=== PATIENT | female | born 1935 | race Caucasian/White ===

== ENCOUNTER 2022-03-13 10:16 | Inpatient (IN) ==
[2022-03-14] MEDS: Vancomycin Oral Soln 125 MG/2.5 ML UDC PO SCH ×5 (00:34→22:24)
[2022-03-14] MEDS: metroNIDAZOLE 500 MG TABLET PO SCH ×4 (00:34→22:26)
[2022-03-14] MEDS: *HR* HYDROcodone/Acet 5/325 mg TABLET PO PRN ×3 (00:44→22:24)
[2022-03-14] MEDS: amLODIPine 5 MG TABLET PO SCH ×2 (00:44→22:23)
[2022-03-14 07:59] LABS: Basophils # 0.1 K/mcL (0.0-0.2); Basophils % 0.8 %; Eosinophils # 0.2 K/mcL (0.0-0.6); Eosinophils % 1.5 %; Hematocrit 35.9 % (35.3-44.9); Hemoglobin 11.8 g/dL (11.5-15.4); Immature Granulocytes % 3.9 % (0-4); Lymphocytes # 1.2 K/mcL (0.6-4.6); Lymphocytes % 11.1 %; Mean Corpuscular HGB Conc 32.9 g/dL (31.6-35.5); Mean Corpuscular Hemoglobin 26.4 pg (28.0-33.3); Mean Corpuscular Volume 80.3 fL (83.0-100.0); Mean Platelet Volume 8.3 fL (9.4-12.4); Monocytes # 1.1 K/mcL (0.0-1.3); Neutrophils # 7.9 K/mcL (1.6-8.9); Platelet Count 442 K/mcL (140-400); Red Blood Count 4.47 M/mcL (3.82-4.97); Red Cell Distribution Width 15.5 % (11.5-14.5); Segmented Neutrophils % 72.7 %; White Blood Count 10.8 K/mcL (4.3-11.1)
[2022-03-14 08:18] LABS: BUN/Creatinine Ratio 14 (6-26); Blood Urea Nitrogen 5 mg/dL (8-23); Calcium 8.1 mg/dL (8.6-10.3); Carbon Dioxide 32 mEq/L (23-29); Chloride 94 mEq/L (98-107); Glucose 124 mg/dL (70-105); Osmolality,Calculated 269 (280-300); Potassium 3.6 mEq/L (3.5-5.1); Sodium 130 mEq/L (136-145); eGFR For African Americans > 60 (> 60); eGFR For Non-African Americans > 60 (> 60)
[2022-03-14] MEDS: Tiotropium 10 INH DOSE IH SCH (09:00)
[2022-03-14] MEDS: carvediloL 6.25 MG TABLET PO SCH ×2 (11:06→17:45)
[2022-03-14] MEDS: Famotidine 20 MG TABLET PO SCH (11:07)
[2022-03-14] MEDS: Aspirin Enteric Coated 81 MG Tablet PO SCH (11:07)
[2022-03-14] MEDS: Lactobacillus 1 EACH CAP.SPRINK PO SCH (11:07)
[2022-03-15 08:17] LABS: Basophils # 0.1 K/mcL (0.0-0.2); Basophils % 0.7 %; Eosinophils # 0.1 K/mcL (0.0-0.6); Eosinophils % 1.2 %; Hematocrit 34.9 % (35.3-44.9); Hemoglobin 11.4 g/dL (11.5-15.4); Immature Granulocytes % 2.7 % (0-4); Lymphocytes # 1.3 K/mcL (0.6-4.6); Lymphocytes % 12.3 %; Mean Corpuscular HGB Conc 32.7 g/dL (31.6-35.5); Mean Corpuscular Hemoglobin 26.8 pg (28.0-33.3); Mean Corpuscular Volume 81.9 fL (83.0-100.0); Mean Platelet Volume 8.1 fL (9.4-12.4); Neutrophils # 7.6 K/mcL (1.6-8.9); Platelet Count 422 K/mcL (140-400); Red Blood Count 4.26 M/mcL (3.82-4.97); Red Cell Distribution Width 15.6 % (11.5-14.5); Segmented Neutrophils % 73.1 %; White Blood Count 10.4 K/mcL (4.3-11.1)
[2022-03-15 08:47] LABS: BUN/Creatinine Ratio 16 (6-26); Blood Urea Nitrogen 6 mg/dL (8-23); Carbon Dioxide 30 mEq/L (23-29); Chloride 96 mEq/L (98-107); Glucose 120 mg/dL (70-105); Magnesium 1.6 mg/dL (1.6-2.6); Osmolality,Calculated 273 (280-300); Potassium 3.6 mEq/L (3.5-5.1); Sodium 132 mEq/L (136-145); eGFR For African Americans > 60 (> 60); eGFR For Non-African Americans > 60 (> 60)
[2022-03-15] MEDS: Vancomycin Oral Soln 125 MG/2.5 ML UDC PO SCH ×4 (10:14→21:22)
[2022-03-15] MEDS: carvediloL 6.25 MG TABLET PO SCH ×2 (10:14→16:04)
[2022-03-15] MEDS: Lactobacillus 1 EACH CAP.SPRINK PO SCH (10:14)
[2022-03-15] MEDS: metroNIDAZOLE 500 MG TABLET PO SCH ×3 (10:14→21:22)
[2022-03-15] MEDS: Aspirin Enteric Coated 81 MG Tablet PO SCH (10:15)
[2022-03-15] MEDS: Famotidine 20 MG TABLET PO SCH (10:15)
[2022-03-15] MEDS: Tiotropium 10 INH DOSE IH SCH (11:19)
[2022-03-15] MEDS: *HR* HYDROcodone/Acet 5/325 mg TABLET PO PRN (12:27)
[2022-03-15] MEDS: amLODIPine 5 MG TABLET PO SCH (21:22)
[2022-03-16] MEDS: Tiotropium 10 INH DOSE IH SCH (08:22)
[2022-03-16] MEDS: Vancomycin Oral Soln 125 MG/2.5 ML UDC PO SCH ×4 (09:47→21:15)
[2022-03-16] MEDS: carvediloL 6.25 MG TABLET PO SCH ×2 (09:47→17:18)
[2022-03-16] MEDS: Lactobacillus 1 EACH CAP.SPRINK PO SCH (09:47)
[2022-03-16] MEDS: Aspirin Enteric Coated 81 MG Tablet PO SCH (09:47)
[2022-03-16] MEDS: Famotidine 20 MG TABLET PO SCH (09:47)
[2022-03-16] MEDS: *HR* HYDROcodone/Acet 5/325 mg TABLET PO PRN ×2 (14:40→21:14)
[2022-03-16] MEDS: amLODIPine 5 MG TABLET PO SCH (21:14)
[2022-03-17] MEDS: *HR* Enoxaparin 40 MG/0.4 ML SYRINGE SQ SCH (05:22)
[2022-03-17] MEDS: Tiotropium 10 INH DOSE IH SCH (09:56)
[2022-03-17] MEDS: Aspirin Enteric Coated 81 MG Tablet PO SCH (10:14)
[2022-03-17] MEDS: Famotidine 20 MG TABLET PO SCH (10:14)
[2022-03-17] MEDS: Lactobacillus 1 EACH CAP.SPRINK PO SCH (10:14)
[2022-03-17] MEDS: carvediloL 6.25 MG TABLET PO SCH ×2 (10:14→18:05)
[2022-03-17] MEDS: *HR* HYDROcodone/Acet 5/325 mg TABLET PO PRN (18:05)
[2022-03-17] MEDS: Acetaminophen 325 MG TABLET PO PRN (21:18)
[2022-03-17] MEDS: amLODIPine 5 MG TABLET PO SCH (21:19)
[2022-03-18] MEDS: *HR* Enoxaparin 40 MG/0.4 ML SYRINGE SQ SCH (06:43)
[2022-03-18] MEDS: carvediloL 6.25 MG TABLET PO SCH ×2 (08:33→16:56)
[2022-03-18] MEDS: Lactobacillus 1 EACH CAP.SPRINK PO SCH (08:33)
[2022-03-18] MEDS: Aspirin Enteric Coated 81 MG Tablet PO SCH (08:33)
[2022-03-18] MEDS: Famotidine 20 MG TABLET PO SCH (08:36)
[2022-03-18] MEDS: Tiotropium 10 INH DOSE IH SCH (09:13)
[2022-03-18] MEDS: *HR* HYDROcodone/Acet 5/325 mg TABLET PO PRN (16:56)
[2022-03-18] MEDS: amLODIPine 5 MG TABLET PO SCH (21:39)
[2022-03-19] MEDS: *HR* HYDROcodone/Acet 5/325 mg TABLET PO PRN ×4 (01:08→23:50)
[2022-03-19] MEDS: *HR* Enoxaparin 40 MG/0.4 ML SYRINGE SQ SCH (06:45)
[2022-03-19 07:25] LABS: Basophils # 0.1 K/mcL (0.0-0.2); Basophils % 1.3 %; Eosinophils # 0.2 K/mcL (0.0-0.6); Eosinophils % 2.7 %; Hematocrit 34.8 % (35.3-44.9); Immature Granulocytes % 0.7 % (0-4); Lymphocytes # 1.4 K/mcL (0.6-4.6); Lymphocytes % 23.2 %; Mean Corpuscular HGB Conc 31.6 g/dL (31.6-35.5); Mean Corpuscular Hemoglobin 26.3 pg (28.0-33.3); Mean Corpuscular Volume 83.1 fL (83.0-100.0); Mean Platelet Volume 8.2 fL (9.4-12.4); Monocytes # 0.7 K/mcL (0.0-1.3); Monocytes % 11.1 %; Neutrophils # 3.6 K/mcL (1.6-8.9); Platelet Count 551 K/mcL (140-400); Red Blood Count 4.19 M/mcL (3.82-4.97); Red Cell Distribution Width 15.9 % (11.5-14.5)
[2022-03-19] MEDS: carvediloL 6.25 MG TABLET PO SCH ×2 (07:38→15:42)
[2022-03-19] MEDS: Aspirin Enteric Coated 81 MG Tablet PO SCH (07:38)
[2022-03-19] MEDS: Famotidine 20 MG TABLET PO SCH (07:38)
[2022-03-19] MEDS: Lactobacillus 1 EACH CAP.SPRINK PO SCH (07:38)
[2022-03-19 07:59] LABS: BUN/Creatinine Ratio 27 (6-26); Blood Urea Nitrogen 12 mg/dL (8-23); Calcium 8.7 mg/dL (8.6-10.3); Carbon Dioxide 31 mEq/L (23-29); Chloride 98 mEq/L (98-107); Glucose 106 mg/dL (70-105); Osmolality,Calculated 280 (280-300); Potassium 3.7 mEq/L (3.5-5.1); Sodium 135 mEq/L (136-145); eGFR For African Americans > 60 (> 60); eGFR For Non-African Americans > 60 (> 60)
[2022-03-19] MEDS: Tiotropium 10 INH DOSE IH SCH (09:18)
[2022-03-19] MEDS: amLODIPine 5 MG TABLET PO SCH (23:47)
[2022-03-20] MEDS: *HR* Enoxaparin 40 MG/0.4 ML SYRINGE SQ SCH (06:22)
[2022-03-20] MEDS: *HR* HYDROcodone/Acet 5/325 mg TABLET PO PRN ×3 (08:08→20:35)
[2022-03-20] MEDS: Famotidine 20 MG TABLET PO SCH (08:42)
[2022-03-20] MEDS: Lactobacillus 1 EACH CAP.SPRINK PO SCH (08:42)
[2022-03-20] MEDS: Aspirin Enteric Coated 81 MG Tablet PO SCH (08:42)
[2022-03-20] MEDS: carvediloL 6.25 MG TABLET PO SCH ×2 (08:42→18:18)
[2022-03-20] MEDS: Tiotropium 10 INH DOSE IH SCH (09:18)
[2022-03-20] MEDS: FLUOCINONIDE 0.05% TP SCH ×2 (20:34→23:18)
[2022-03-20] MEDS: amLODIPine 5 MG TABLET PO SCH (20:35)
[2022-03-21] MEDS: *HR* HYDROcodone/Acet 5/325 mg TABLET PO PRN ×3 (06:21→21:36)
[2022-03-21] MEDS: *HR* Enoxaparin 40 MG/0.4 ML SYRINGE SQ SCH (06:21)
[2022-03-21] MEDS: carvediloL 6.25 MG TABLET PO SCH ×2 (08:37→16:46)
[2022-03-21] MEDS: Lactobacillus 1 EACH CAP.SPRINK PO SCH (08:37)
[2022-03-21] MEDS: Famotidine 20 MG TABLET PO SCH (08:37)
[2022-03-21] MEDS: Aspirin Enteric Coated 81 MG Tablet PO SCH (08:37)
[2022-03-21] MEDS: FLUOCINONIDE 0.05% TP SCH ×2 (08:39→21:37)
[2022-03-21] MEDS: Tiotropium 10 INH DOSE IH SCH (09:19)
[2022-03-21] MEDS: amLODIPine 5 MG TABLET PO SCH (21:36)
[2022-03-22] MEDS: *HR* HYDROcodone/Acet 5/325 mg TABLET PO PRN ×2 (05:19→20:56)
[2022-03-22] MEDS: *HR* Enoxaparin 40 MG/0.4 ML SYRINGE SQ SCH (05:19)
[2022-03-22] MEDS: carvediloL 6.25 MG TABLET PO SCH ×2 (08:31→16:29)
[2022-03-22] MEDS: Famotidine 20 MG TABLET PO SCH (08:31)
[2022-03-22] MEDS: Lactobacillus 1 EACH CAP.SPRINK PO SCH (08:31)
[2022-03-22] MEDS: Aspirin Enteric Coated 81 MG Tablet PO SCH (08:32)
[2022-03-22] MEDS: FLUOCINONIDE 0.05% TP SCH ×3 (08:33→21:01)
[2022-03-22] MEDS: Tiotropium 10 INH DOSE IH SCH (08:56)
[2022-03-22] MEDS: amLODIPine 5 MG TABLET PO SCH (20:56)
[2022-03-23] MEDS: *HR* HYDROcodone/Acet 5/325 mg TABLET PO PRN ×3 (04:20→22:47)
[2022-03-23] MEDS: *HR* Enoxaparin 40 MG/0.4 ML SYRINGE SQ SCH (04:22)
[2022-03-23] MEDS: Famotidine 20 MG TABLET PO SCH (08:07)
[2022-03-23] MEDS: Aspirin Enteric Coated 81 MG Tablet PO SCH (08:07)
[2022-03-23] MEDS: carvediloL 6.25 MG TABLET PO SCH ×2 (08:07→18:13)
[2022-03-23] MEDS: FLUOCINONIDE 0.05% TP SCH ×2 (08:08→22:48)
[2022-03-23] MEDS: Lactobacillus 1 EACH CAP.SPRINK PO SCH (08:08)
[2022-03-23] MEDS: Tiotropium 10 INH DOSE IH SCH (08:37)
[2022-03-23] MEDS: Acetaminophen 325 MG TABLET PO PRN (18:12)
[2022-03-23] MEDS: amLODIPine 5 MG TABLET PO SCH (22:47)
[2022-03-24] MEDS: *HR* Enoxaparin 40 MG/0.4 ML SYRINGE SQ SCH (06:11)
[2022-03-24] MEDS: *HR* HYDROcodone/Acet 5/325 mg TABLET PO PRN ×2 (08:00→18:20)
[2022-03-24] MEDS: Famotidine 20 MG TABLET PO SCH (08:01)
[2022-03-24] MEDS: Lactobacillus 1 EACH CAP.SPRINK PO SCH (08:01)
[2022-03-24] MEDS: FLUOCINONIDE 0.05% TP SCH ×2 (08:01→20:25)
[2022-03-24] MEDS: Aspirin Enteric Coated 81 MG Tablet PO SCH (08:01)
[2022-03-24] MEDS: carvediloL 6.25 MG TABLET PO SCH ×2 (08:01→18:17)
[2022-03-24] MEDS: Tiotropium 10 INH DOSE IH SCH (09:26)
[2022-03-24] MEDS: amLODIPine 5 MG TABLET PO SCH (20:25)
[2022-03-25] MEDS: *HR* HYDROcodone/Acet 5/325 mg TABLET PO PRN ×3 (00:45→20:56)
[2022-03-25] MEDS: *HR* Enoxaparin 40 MG/0.4 ML SYRINGE SQ SCH (05:31)
[2022-03-25] MEDS: Acetaminophen 325 MG TABLET PO PRN (05:31)
[2022-03-25] MEDS: Tiotropium 10 INH DOSE IH SCH (08:08)
[2022-03-25] MEDS: Famotidine 20 MG TABLET PO SCH (08:39)
[2022-03-25] MEDS: Lactobacillus 1 EACH CAP.SPRINK PO SCH (08:39)
[2022-03-25] MEDS: Aspirin Enteric Coated 81 MG Tablet PO SCH (08:39)
[2022-03-25] MEDS: carvediloL 6.25 MG TABLET PO SCH ×2 (08:39→17:20)
[2022-03-25] MEDS: FLUOCINONIDE 0.05% TP SCH ×2 (08:40→20:57)
[2022-03-25] MEDS: amLODIPine 5 MG TABLET PO SCH (20:56)
[2022-03-26] MEDS: *HR* HYDROcodone/Acet 5/325 mg TABLET PO PRN (04:33)
[2022-03-26] MEDS: *HR* Enoxaparin 40 MG/0.4 ML SYRINGE SQ SCH (06:20)
[2022-03-26 07:44] LABS: Hematocrit 33.7 % (35.3-44.9); Hemoglobin 10.8 g/dL (11.5-15.4); Mean Corpuscular Hemoglobin 26.5 pg (28.0-33.3); Mean Corpuscular Volume 82.6 fL (83.0-100.0); Mean Platelet Volume 8.2 fL (9.4-12.4); Platelet Count 407 K/mcL (140-400); Red Blood Count 4.08 M/mcL (3.82-4.97); Red Cell Distribution Width 15.9 % (11.5-14.5); White Blood Count 6.7 K/mcL (4.3-11.1)
[2022-03-26 08:09] LABS: BUN/Creatinine Ratio 27 (6-26); Blood Urea Nitrogen 12 mg/dL (8-23); Calcium 9.1 mg/dL (8.6-10.3); Carbon Dioxide 31 mEq/L (23-29); Chloride 99 mEq/L (98-107); Glucose 115 mg/dL (70-105); Osmolality,Calculated 285 (280-300); Potassium 3.7 mEq/L (3.5-5.1); Sodium 137 mEq/L (136-145); eGFR For African Americans > 60 (> 60); eGFR For Non-African Americans > 60 (> 60)
[2022-03-26] MEDS: Tiotropium 10 INH DOSE IH SCH (08:55)
[2022-03-26] MEDS: Lactobacillus 1 EACH CAP.SPRINK PO SCH (09:11)
[2022-03-26] MEDS: Aspirin Enteric Coated 81 MG Tablet PO SCH (09:11)
[2022-03-26] MEDS: Famotidine 20 MG TABLET PO SCH (09:12)
[2022-03-26] MEDS: carvediloL 6.25 MG TABLET PO SCH ×2 (09:12→16:56)
[2022-03-26] MEDS: FLUOCINONIDE 0.05% TP SCH ×2 (09:13→21:02)
[2022-03-26] MEDS: amLODIPine 5 MG TABLET PO SCH (21:03)
[2022-03-27] MEDS: *HR* HYDROcodone/Acet 5/325 mg TABLET PO PRN ×3 (01:47→19:46)
[2022-03-27] MEDS: *HR* Enoxaparin 40 MG/0.4 ML SYRINGE SQ SCH (06:15)
[2022-03-27] MEDS: carvediloL 6.25 MG TABLET PO SCH ×2 (08:28→17:22)
[2022-03-27] MEDS: Famotidine 20 MG TABLET PO SCH (08:28)
[2022-03-27] MEDS: Aspirin Enteric Coated 81 MG Tablet PO SCH (08:28)
[2022-03-27] MEDS: Lactobacillus 1 EACH CAP.SPRINK PO SCH (08:28)
[2022-03-27] MEDS: FLUOCINONIDE 0.05% TP SCH ×2 (08:29→19:46)
[2022-03-27] MEDS: Tiotropium 10 INH DOSE IH SCH (10:07)
[2022-03-27] MEDS: amLODIPine 5 MG TABLET PO SCH (19:46)
[2022-03-28] MEDS: *HR* HYDROcodone/Acet 5/325 mg TABLET PO PRN ×3 (04:47→18:42)
[2022-03-28] MEDS: *HR* Enoxaparin 40 MG/0.4 ML SYRINGE SQ SCH (04:48)
[2022-03-28] MEDS: Tiotropium 10 INH DOSE IH SCH (09:36)
[2022-03-28] MEDS: carvediloL 6.25 MG TABLET PO SCH ×2 (11:09→18:01)
[2022-03-28] MEDS: Aspirin Enteric Coated 81 MG Tablet PO SCH (11:09)
[2022-03-28] MEDS: Lactobacillus 1 EACH CAP.SPRINK PO SCH (11:10)
[2022-03-28] MEDS: Famotidine 20 MG TABLET PO SCH (11:10)
[2022-03-28] MEDS: FLUOCINONIDE 0.05% TP SCH ×2 (11:11→22:19)
[2022-03-28] MEDS ORDERED: *HR* LORazepam 0.5 MG TABLET PO ONE (18:18)
[2022-03-28] MEDS: amLODIPine 5 MG TABLET PO SCH (22:19)
[2022-03-29] MEDS: *HR* HYDROcodone/Acet 5/325 mg TABLET PO PRN ×2 (01:52→21:47)
[2022-03-29] MEDS ORDERED: *HR* LORazepam 0.5 MG TABLET PO ONE (03:51)
[2022-03-29] MEDS: *HR* Enoxaparin 40 MG/0.4 ML SYRINGE SQ SCH (04:12)
[2022-03-29] MEDS: Lactobacillus 1 EACH CAP.SPRINK PO SCH (09:47)
[2022-03-29] MEDS: carvediloL 6.25 MG TABLET PO SCH ×2 (09:47→16:47)
[2022-03-29] MEDS: Aspirin Enteric Coated 81 MG Tablet PO SCH (09:47)
[2022-03-29] MEDS: Famotidine 20 MG TABLET PO SCH (09:47)
[2022-03-29] MEDS: FLUOCINONIDE 0.05% TP SCH ×2 (10:00→21:39)
[2022-03-29] MEDS: Tiotropium 10 INH DOSE IH SCH (11:01)
[2022-03-29 16:30] LABS: Hematocrit 33.6 % (35.3-44.9); Hemoglobin 10.9 g/dL (11.5-15.4); Mean Corpuscular HGB Conc 32.4 g/dL (31.6-35.5); Mean Corpuscular Hemoglobin 26.8 pg (28.0-33.3); Mean Corpuscular Volume 82.6 fL (83.0-100.0); Mean Platelet Volume 8.5 fL (9.4-12.4); Platelet Count 331 K/mcL (140-400); Red Blood Count 4.07 M/mcL (3.82-4.97); Red Cell Distribution Width 15.9 % (11.5-14.5)
[2022-03-29 16:49] LABS: BUN/Creatinine Ratio 28 (6-26); Blood Urea Nitrogen 13 mg/dL (8-23); Calcium 9.1 mg/dL (8.6-10.3); Carbon Dioxide 28 mEq/L (23-29); Chloride 97 mEq/L (98-107); Glucose 134 mg/dL (70-105); Osmolality,Calculated 278 (280-300); Potassium 3.6 mEq/L (3.5-5.1); Sodium 133 mEq/L (136-145); eGFR For African Americans > 60 (> 60); eGFR For Non-African Americans > 60 (> 60)
[2022-03-29] MEDS: amLODIPine 5 MG TABLET PO SCH (21:38)
[2022-03-30] MEDS: Acetaminophen 325 MG TABLET PO PRN (01:57)
[2022-03-30] MEDS: *HR* HYDROcodone/Acet 5/325 mg TABLET PO PRN ×3 (04:50→22:24)
[2022-03-30] MEDS: *HR* Enoxaparin 40 MG/0.4 ML SYRINGE SQ SCH (04:51)
[2022-03-30] MEDS: Famotidine 20 MG TABLET PO SCH (07:55)
[2022-03-30] MEDS: carvediloL 6.25 MG TABLET PO SCH ×2 (07:55→17:10)
[2022-03-30] MEDS: Lactobacillus 1 EACH CAP.SPRINK PO SCH (07:55)
[2022-03-30] MEDS: Aspirin Enteric Coated 81 MG Tablet PO SCH (07:55)
[2022-03-30] MEDS: FLUOCINONIDE 0.05% TP SCH ×2 (08:00→22:25)
[2022-03-30] MEDS: Tiotropium 10 INH DOSE IH SCH (08:20)
[2022-03-30 09:42] LABS: Bilirubin,Urine Negative (Negative); Blood,Urine Negative (Negative); Clarity,Urine Cloudy (Clear); Color,Urine Yellow (Yellow); Glucose,Urine (UA) Normal (Normal); Ketones,Urine Negative (Negative); Leukocyte Esterase,Urine Trace (Negative); Nitrite,Urine Positive (Negative); Protein,Urine 100 mg/dL (Neg-Trace); Specific Gravity,Urine >= 1.030 (1.010-1.025); Urobilinogen,Urine Normal (Normal)
[2022-03-30 09:50] LABS: Bacteria,Urine Many per hpf (None-Few); WBC,Urine 50-100 per hpf (0-3)
[2022-03-30] MEDS: *HR* LORazepam 0.5 MG TABLET PO PRN ×2 (17:10→22:38)
[2022-03-30] MEDS: amLODIPine 5 MG TABLET PO SCH (22:23)
[2022-03-31] MEDS: *HR* Enoxaparin 40 MG/0.4 ML SYRINGE SQ SCH (04:18)
[2022-03-31 06:46] VITALS: BP 134/67; PULSE 98; RESP 20; TEMP 98.4
[2022-03-31] MEDS: Tiotropium 10 INH DOSE IH SCH (08:45)
[2022-03-31 08:47] VITALS: O2SAT 92
[2022-03-31] MEDS: Famotidine 20 MG TABLET PO SCH (08:58)
[2022-03-31] MEDS: carvediloL 6.25 MG TABLET PO SCH (08:59)
[2022-03-31] MEDS: Lactobacillus 1 EACH CAP.SPRINK PO SCH (08:59)
[2022-03-31] MEDS: Aspirin Enteric Coated 81 MG Tablet PO SCH (08:59)
[2022-03-31] MEDS: *HR* LORazepam 0.5 MG TABLET PO PRN (09:00)
[2022-03-31] MEDS: FLUOCINONIDE 0.05% TP SCH (09:00)
== END 2022-03-31 10:29 | disposition home health service (06) | DRG 372 ==
LOC: INPPIK 22:51
PROVIDERS: ADMIT Family Medicine; ATTEND Family Medicine